=== PATIENT | male | born 2000 | race Caucasian/White ===

== ENCOUNTER 2024-08-10 16:33 | Emergency (ER) | payer SELFPAY ==
[~2024-08-10] VITALS: Ht 182.9 cm; Wt 145.1 kg
[~2024-08-10 16:33] MED LIST: ALBU17AE26 INH; ALLERGY PO; BEN50 PO
[2024-08-10 16:51] VITALS: BP_SYST 126; PULSE 57; RESP 18; TEMP 97.8; O2SAT 97
[2024-08-10] MEDS: EPINEPHRINE HCL/PF 1 MG/ML AMP IM ONE (17:17)
[2024-08-10] MEDS ORDERED: EPIN0.3P3 IM (17:32)
[2024-08-10] MEDS ORDERED: PRED20TA PO (17:32)
[2024-08-10] MEDS ORDERED: DIPH25CA83 PO (17:32)
[2024-08-10 18:02] VITALS: BP_SYST 126; PULSE 57; RESP 18; TEMP 97.8; O2SAT 97
== END 2024-08-10 18:02 | disposition home or self-care (01) ==
LOC: SED 16:33
DX: L50.9 Urticaria, unspecified (principal); J45.909 Unspecified asthma, uncomplicated; Z79.899 Other long term (current) drug therapy
CPT/HCPCS: 99283; 96372; J0171